=== PATIENT | male | born 1940 | race Caucasian/White ===

== ENCOUNTER 2018-12-19 18:37 | Emergency (ER) | payer OTHER ==
--- NOTE | 2018-12-19 19:59 | RAD REPORT ---
EXAM DESCRIPTION: RAD - Wrist Right 3 View - 12/19/2018 7:09 pm CLINICAL HISTORY: Slip and fall, right wrist pain COMPARISON: December 2016 FINDINGS: No fracture is identified. There is no dislocation or periosteal reaction noted. Significa nt degenerative changes are present at the trapezium first metacarpal articulation. There is radial s ruth subluxation of the first metacarpal. Heterotopic bone is present. Degenerative change elsewhere i s mild. No foreign body or other soft tissue abnormality. IMPRESSION: No fracture or acute bone finding. 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 Findings are not substan tially different from 2017.
--- NOTE | 2018-12-19 20:13 | ER ---
Nurse's Notes [facility] Name: Danny Tao Jr Age: 78 yrs Sex: Male : 1940 Arrival Date: 12/19/2018 Time: 18:37 Bed 10 Private MD: Diagnosis: Pain in right wrist Presentation: 12/19 18:48 Presenting complaint: Patient states: R wrist pain after slipping on wet floor earlier ss today. Transition of care: patient was not received from another setting of care. Onset of symptoms was December 19, 2018. Risk Assessment: Do you want to hurt yourself or someone else? Patient reports no desire to harm self or others. Initial Sepsis Screen: Does the patient meet any 2 criteria? No. Patient's initial sepsis screen is negative. Does the patient have a suspected source of infection? No. Patient's initial sepsis screen is negative. Care prior to arrival: None. 18:48 Method Of Arrival: Ambulatory ss 18:48 Acuity: EZEQUIEL 4 ss Triage Assessment: 20:46 General: Appears in no apparent distress. comfortable. Injury Description: Bruise wh sustained to Right wrist. Historical: - Allergies: 18:50 No Known Allergies; ss - Immunization history:: Adult Immunizations up to date. - Social history:: Smoking status: Patient/guardian denies using tobacco. - Ebola Screening: : Patient denies exposure to infectious person Patient denies travel to an Ebola-affected area in the 21 days before illness onset. Screenin:46 Abuse screen: Denies threats or abuse. Denies injuries from another. Nutritional wh screening: No deficits noted. Tuberculosis screening: No symptoms or risk factors identified. Fall Risk Fall in past 12 months (25 points). Assessment: 19:30 General: Appears in no apparent distress. comfortable, Behavior is calm, cooperative, wh appropriate for age. Pain: Complains of pain in right wrist Pain does not radiate. Pain currently is 5 out of 10 on a pain scale. Pain began 4 hours ago. Neuro: Level of Consciousness is awake, alert, obeys commands, Oriented to person, place, time, situation, Appropriate for age. Cardiovascular: Capillary refill < 3 seconds. Respiratory: Airway is patent Respiratory effort is even, unlabored, Respiratory pattern is regular, symmetrical. GI: Abdomen is flat, non-distended. : No signs and/or symptoms were reported regarding the genitourinary system. EENT: No signs and/or symptoms were reported regarding the EENT system. Derm: Skin is intact, is healthy with good turgor, Skin is pink, warm \T\ dry. normal. Musculoskeletal: Range of motion: limited in Right Wrist Swelling present in Right Wrist. 20:46 Reassessment: Patient appears in no apparent distress at this time. Patient and/or family updated on plan of care and expected duration. Pain level reassessed. Patient is alert, oriented x 3, equal unlabored respirations, skin warm/dry/pink. Patient states feeling better. after splint placement. Vital Signs: 18:50 BP 162 / 78; Pulse 96; Resp 17; Temp 98.9(TE); Pulse Ox 97% on R/A; Weight 88.9 kg; ss Height 5 ft. 9 in. (175.26 cm); Pain 8/10; 18:50 Body Mass Index 28.94 (88.90 kg, 175.26 cm) ED Course: 18:37 Patient arrived in ED. as 18:49 Triage completed. 18:50 Arm band placed on left wrist. 19:05 Marquis Coronado is Primary Nurse. 19:07 XRAY Wrist RIGHT 3 view In Process Unspecified. EDHI 19:18 Manpreet Espino NP is PHCP. pm1 19:18 Gordon Schultz MD is Attending Physician. pm1 20:46 No provider procedures requiring assistance completed. Patient did not have IV access during this emergency room visit. 20:47 Patient has correct armband on for positive identification. Bed in low position. Call light in reach. Side rails up X 1. Pulse ox on. NIBP on. Administered Medications: No medications were administered Outcome: 20:12 Discharge ordered by . pm1 20:47 Discharged to home ambulatory. 20:47 Condition: good 20:47 Discharge instructions given to patient, family, Instructed on discharge instructions, follow up and referral plans. Splint Care Demonstrated understanding of instructions, follow-up care, splint care. 20:48 Patient left the ED. Signatures: Dispatcher [employer] EDHI Katelynn Rooney Shelby, RN RN Manpreet Espino, ESTRELLITA MOLDER OFFBEARER pm1 [place], Winsy wh
--- NOTE | 2018-12-19 20:14 | EDPHYS ---
Physician Documentation [facility] Name: Danny Tao Jr Age: 78 yrs Sex: Male : 1940 Arrival Date: 12/19/2018 Time: 18:37 Bed 10 Private MD: ED Physician Gordon Schultz HPI: 12/19 20:08 This 78 yrs old Male presents to ER via Ambulatory with complaints of Wrist pm1 Injury. 20:08 The patient or guardian reports pain. The complaints affect the right wrist diffusely. pm1 Context: The problem was sustained at home, resulted from slipped on water and fell in bathroom. Landed on right hand. Onset: The symptoms/episode began/occurred today. Modifying factors: The symptoms are alleviated by holding still, the symptoms are aggravated by movement. Associated signs and symptoms: Pertinent negatives: cyanosis distally, decreased sensation distally, numbness distally, tingling distally, headache, head injury, neck pain, LOC. The patient has not experienced similar symptoms in the past. The patient has not recently seen a physician. Historical: - Allergies: 18:50 No Known Allergies; ss - Immunization history:: Adult Immunizations up to date. - Social history:: Smoking status: Patient/guardian denies using tobacco. - Ebola Screening: : Patient denies exposure to infectious person Patient denies travel to an Ebola-affected area in the 21 days before illness onset. ROS: 20:08 Constitutional: Negative for fever, chills, and weight loss, Eyes: Negative for injury, pm1 pain, redness, and discharge, ENT: Negative for injury, pain, and discharge, Neck: Negative for injury, pain, and swelling, Cardiovascular: Negative for chest pain, palpitations, and edema, Respiratory: Negative for shortness of breath, cough, wheezing, and pleuritic chest pain, Abdomen/GI: Negative for abdominal pain, nausea, vomiting, diarrhea, and constipation, Back: Negative for injury and pain, : Negative for injury, bleeding, discharge, and swelling. 20:08 Skin: Negative for injury, rash, and discoloration, Neuro: Negative for headache, weakness, numbness, tingling, and seizure. 20:08 MS/extremity: Positive for pain, of the right wrist, Negative for decreased range of motion, deformity. Exam: 20:08 Constitutional: This is a well developed, well nourished patient who is awake, alert, pm1 and in no acute distress. Head/Face: Normocephalic, atraumatic. Eyes: Pupils equal round and reactive to light, extra-ocular motions intact. Lids and lashes normal. Conjunctiva and sclera are non-icteric and not injected. Cornea within normal limits. Periorbital areas with no swelling, redness, or edema. ENT: Nares patent. No nasal discharge, no septal abnormalities noted. Tympanic membranes are normal and external auditory canals are clear. Oropharynx with no redness, swelling, or masses, exudates, or evidence of obstruction, uvula midline. Mucous membranes moist. Neck: Trachea midline, no thyromegaly or masses palpated, and no cervical lymphadenopathy. Supple, full range of motion without nuchal rigidity, or vertebral point tenderness. No Meningismus. Chest/axilla: Normal chest wall appearance and motion. Nontender with no deformity. No lesions are appreciated. Cardiovascular: Regular rate and rhythm with a normal S1 and S2. No gallops, murmurs, or rubs. Normal PMI, no JVD. No pulse deficits. Respiratory: Lungs have equal breath sounds bilaterally, clear to auscultation and percussion. No rales, rhonchi or wheezes noted. No increased work of breathing, no retractions or nasal flaring. Abdomen/GI: Soft, non-tender, with normal bowel sounds. No distension or tympany. No guarding or rebound. No evidence of tenderness throughout. Back: No spinal tenderness. No costovertebral tenderness. Full range of motion. Skin: Warm, dry with normal turgor. Normal color with no rashes, no lesions, and no evidence of cellulitis. 20:08 Musculoskeletal/extremity: Extremities: grossly normal except: noted in the lateral and medial aspect of right wrist: tenderness, There is no evidence of decreased ROM, deformity, the right hand Sensation intact. 20:08 Neuro: Orientation: is normal, Motor: is normal, moves all fours, Sensation: is normal, no obvious gross deficits, Gait: is steady, at a normal pace, without difficulty. Vital Signs: 18:50 BP 162 / 78; Pulse 96; Resp 17; Temp 98.9(TE); Pulse Ox 97% on R/A; Weight 88.9 kg; ss Height 5 ft. 9 in. (175.26 cm); Pain 8/10; 18:50 Body Mass Index 28.94 (88.90 kg, 175.26 cm) Procedures: 20:20 Splinting: Splint applied to right wrist using wrist splint, applied by tech. Examined pm1 by me, post splint application: neurovascular intact, 2+ distal pulses palpable, brisk capillary refill noted, Patient tolerated well. MDM: 19:20 Patient medically screened. pm1 20:12 Data reviewed: vital signs. Data interpreted: Pulse oximetry: on room air is 97 %. pm1 Interpretation: normal. Counseling: I had a detailed discussion with the patient and/or guardian regarding: the historical points, exam findings, and any diagnostic results supporting the discharge/admit diagnosis, radiology results, the need for outpatient follow up, to return to the emergency department if symptoms worsen or persist or if there are any questions or concerns that arise at home. 12/19 18:51 Order name: XRAY Wrist RIGHT 3 view; Complete Time: 20:08 12/19 19:48 Order name: Splint - Wrist; Complete Time: 20:10 pm1 Administered Medications: No medications were administered Disposition: 12/20 16:28 Co-signature as Attending Physician, Gordon Schultz MD. Disposition: 12/19/18 20:12 Discharged to Home. Impression: Pain in right wrist. - Condition is Stable. - Discharge Instructions: Musculoskeletal Pain, Wrist Pain, Wrist Splint. - Medication Reconciliation Form, Thank You Letter, Antibiotic Education, Prescription Opioid Use form. - Follow up: Emergency Department; When: As needed; Reason: Worsening of condition. Follow up: Private Physician; When: 2 - 3 days; Reason: Recheck today's complaints, Continuance of care, Re-evaluation by your physician. - Problem is new. - Symptoms have improved. Signatures: Dispatcher [employer] EDAshley Muse RN RN Manpreet Espino NP POWER SHOVEL OPERATOR HELPER pm1 Marquis Coronado Gordon Schultz MD MD gs Corrections: (The following items were deleted from the chart) 12/19 20:48 20:12 12/19/2018 20:12 Discharged to Home. Impression: Pain in right wrist. Condition wh is Stable. Forms are Medication Reconciliation Form, Thank You Letter, Antibiotic Education, Prescription Opioid Use. Follow up: Emergency Department; When: As needed; Reason: Worsening of condition. Follow up: Private Physician; When: 2 - 3 days; Reason: Recheck today's complaints, Continuance of care, Re-evaluation by your physician. Problem is new. Symptoms have improved. pm1
[2018-12-19 20:52] VITALS: BP 162/78; TEMP 98.9; O2SAT 97
== END 2018-12-19 20:48 | disposition home or self-care (01) ==
LOC: ER 18:37
DX: M25.531 Pain in right wrist (principal); W01.0XXA Fall on same level from slipping, tripping and stumbling without subsequent striking against object, initial encounter; Y93.89 Activity, other specified; Y92.002 Bathroom of unspecified non-institutional (private) residence as the place of occurrence of the external cause
CPT/HCPCS: 99283